=== PATIENT | male | born 1995 | race Caucasian/White ===

== ENCOUNTER 2017-05-24 23:00 | Inpatient (IN) | payer OTHER ==
[~2017-05-24] VITALS: Ht 177.8 cm; Wt 61.2 kg
--- NOTE | ~2017-05-24 | PN ---
Unit #: [id number] #: [id number] Patient: NICKIE WU [id number] [facility] [address] [place] [address] [id number] I MR#: [id number] NAME: NICKIE WU ROOM: 13 Age: 22 Sex: M Admission Date: 05/25/2017 : 1995 Attending Physician: Xiomy Gomes M.D. Admitting Physician: Xiomy Gomes M.D. Primary Care Physician: Queta VERONICA PROGRESS NOTES DATE OF SERVICE 05/27/2017 DISCUSSION Mr. Wu is a 22-year-old white male who was seen today. Chart was reviewed and case was discussed with the staff. He has been anxious, withdrawn, and rather seclusive to himself. Meanwhile, he has been cooperative with the treatment recommendations and has been taking the medications and tolerating them fairly well with no reported side effects. MENTAL STATUS EXAMINATION Young white male who is casually dressed with fair personal hygiene, appears to be in no acute distress or discomfort. The patient was awake and alert on interaction with intact orientation. His mood is anxious with congruent affect. His speech is slow and restricted in content. His thought processes were disorganized with some looseness of associations. His insight and judgment remain significantly impaired. TREATMENT PLAN 1. We will continue him on his current medications and treatment protocol. We will monitor response and make further adjustments as needed. 2. We will continue to follow up. Dictated by... Raul Shultz/cynthiag TD: 05/27/2017 12:50 JOB #: [id number] Unit #: [id number] #: [id number] Patient: NICKIE WU PROGRESS NOTES Page 1 of 1 X Xiomy Gomes MD X PROGRESS NOTE
--- NOTE | ~2017-05-24 | PN ---
Unit #: [id number] #: [id number] Patient: NICKIE WU [id number] [facility] [address] [place] [address] [id number] I MR#: [id number] NAME: NICKIE WU ROOM: 13 Age: 22 Sex: M Admission Date: 05/25/2017 : 1995 Attending Physician: Xiomy Gomes M.D. Admitting Physician: Xiomy Gomes M.D. Primary Care Physician: Queta VERONICA PROGRESS NOTES DATE May 30, 2017 DISCUSSION Mr. Wu is a 22-year-old white male, who was seen today and chart was reviewed and the case was discussed with the staff. He has been anxious, withdrawn, and rather seclusive to himself. Meanwhile, he has been cooperative with the treatment recommendations, and he has been taking the medications and tolerating them fairly well with no reported side effects. MENTAL STATUS EXAMINATION Young white male, who was casually dressed with fair personal hygiene and appears to be in no acute distress or discomfort. He was awake and alert on interaction with intact orientation. His mood is anxious with a congruent affect. He denies any suicidal or homicidal ideations. His insight and judgment remain slightly impaired. TREATMENT PLAN 1. We will continue him on his current medications and treatment protocol, and will monitor his response to the medications, and make further adjustments as needed. 2. We will continue to followup. Dictated by... Raul Shultz/lisa TD: 05/31/2017 11:36 JOB #: [id number] Unit #: [id number] #: [id number] Patient: NICKIE WU PROGRESS NOTES Page 1 of 1 X Xiomy Gomes MD X PROGRESS NOTE
--- NOTE | ~2017-05-24 | HP ---
Unit #: [id number] #: [id number] Patient: NICKIE GARG [id number] [facility] [address] [place] [address] [id number] I MR#: [id number] NAME: NICKIE GARG ROOM: P113 Age: 22 Sex: M Admission Date: 05/25/2017 : 1995 Attending Physician: Xiomy Gomes M.D. Admitting Physician: Xiomy Gomes M.D. Primary Care Physician: Queta Chris HISTORY AND PHYSICAL HISTORY OF PRESENT ILLNESS Nickie is a 22 year old admitted to [address] [place] [address] with depression verbalizing wanting to hurt himself. He has had other admissions to this facility for the same. PAST MEDICAL HISTORY Long history of poly-illicit substance abuse. PAST SURGICAL HISTORY Nothing reported. ALLERGIES No known drug allergies. SOCIAL HISTORY Smokes 1 pack per day. Denies alcohol. Has a history of illicit substance abuse to include opioids and amphetamines. FAMILY HISTORY Medically noncontributory. REVIEW OF SYSTEMS CONSTITUTIONAL: No fever or chills. HEENT: Denies any sore throat, ear pain or runny nose. CARDIOVASCULAR: Denies chest pain, irregular heart rhythm or palpitations. CHEST: Denies shortness of breath or cough. No hemoptysis. GASTROINTESTINAL: Denies nausea, vomiting, diarrhea or chronic constipation. ENDOCRINE: Denies history of increased thirst or urination. No recent significant weight loss or gain. GENITOURINARY: Denies dysuria, frequency, or hematuria. SKIN: Denies any rashes. HEMATOLOGIC: Denies history of increased bleeding or bruising. MUSCULOSKELETAL: Denies any hot, swollen joints. No generalized muscle pain. NEUROLOGIC: Denies problems with vision or speech. No frequent, severe headaches. No numbness, tingling or weakness in any extremities. Denies loss of bladder or bowel control. CURRENT MEDICATIONS 1. Seroquel 200 mg q.h.s. 2. Nicotine patch 14 mg daily. 3. Milk of Magnesia p.r.n. Unit #: [id number] #: [id number] Patient: NICKIE GARG 4. Maalox p.r.n. 5. Tylenol p.r.n. 6. Desyrel p.r.n. 7. Cogentin p.r.n. PHYSICAL EXAMINATION GENERAL: Alert, well-nourished, in no apparent distress. VITAL SIGNS: Blood pressure 110/80, heart rate 80, respirations 16, temperature 98.6. WEIGHT: 135. HEIGHT: 5 feet 10 inches. SKIN: Warm and dry without rash or lesion. HEENT: Normocephalic. TMs not viewed. Oral and nasal passages clear. Conjunctivae clear. PERRLA. EOMs intact. NECK: Supple without lymphadenopathy or thyromegaly. HEART: Regular rate and rhythm without murmur. LUNGS: Clear. ABDOMEN: Soft, nontender. : Not done. EXTREMITIES: No evidence of cyanosis, clubbing or edema. Moves all without focal deficit. NEUROLOGICAL: Grossly within normal limits. Cranial Nerves: II: Visual ge are intact. III, IV AND : Extraocular movements are intact. Pupils are equal, round and reactive to light. V: Facial sensation is grossly normal. VII: Facial movements and expression are normal. VIII: Auditory acuity grossly intact. IX, X: Uvula is midline. Phonation is normal. XI: Patient shrugs shoulders and turns head normally. XII: Tongue protrudes in the midline. Sensory and Motor Function: Sensory and motor sensation is grossly normal. Motor: moves all extremities well. Coordination: Gait is normal. Deep Tendon Reflexes: Intact. IMPRESSION Psychiatric admission. RECOMMENDATIONS PSYCHIATRIC: Per psychiatrist. MEDICAL: See no contraindication to participate in facility's activities. MEDICAL PROGNOSIS Good. MEDICAL CONDITION Stable. Dictated by... Lala Steve P.A.-C. for Raul Cullen/wilbert TD: 05/25/2017 17:50 JOB #: [id number] Unit #: [id number] #: [id number] Patient: NICKIE GARG HISTORY AND PHYSICAL Page 1 of 1 X Lala Steve HISTORY AND PHYSICAL
--- NOTE | ~2017-05-24 | DS ---
Unit #: [id number] #: [id number] Patient: [facility]U [id number] [facility] [address] [place] [address] [id number] I MR#: [id number] NAME: NICKIE WU ROOM: [facility] Age: 22 Sex: M Admission Date: 05/25/2017 : 1995 Discharge Date: 06/01/2017 Attending Physician: Xiomy Gomes M.D. Primary Care Physician: Queta Chris DISCHARGE SUMMARY IDENTIFYING DATA Mr. Wu is a 22-year-old single white male, who is a resident of [place], [place], and is known to us from previous encounters and was brought to the hospital by his family. HISTORY OF PRESENT ILLNESS Please see initial psychiatric evaluation for details. PAST PSYCHIATRIC HISTORY Please see initial psychiatric evaluation for details. PAST MEDICAL HISTORY Please see initial psychiatric evaluation for details. HOSPITAL COURSE The patient was admitted to the Adult Psychiatric Unit at [facility] and was oriented to the hospital environment. Routine p.r.n. medications were initiated and he was started back on his home medications and was closely monitored. He was initially seen to be anxious, withdrawn, and rather seclusive to himself. He was calm and cooperative with the treatment recommendations and he was taking his medications regularly and was tolerating them fairly well and was able to show a decent therapeutic response with improvement in his depression and anxiety, and no agitation or aggression was noted, and he was willing to continue treatment on outpatient basis. He was denying any suicidal ideations, intent, or plan, and as such it was decided that he will be discharged home to continue treatment on an outpatient basis. DISCHARGE DIAGNOSES Psychiatric: Seneca I Schizoaffective disorder, bipolar type, most recent episode depressed, recurrent, without psychotic features. Seneca II Seneca III None. Seneca IV Moderate psychosocial stressors. Seneca V DISCHARGE MEDICATIONS Seroquel 100 mg in the morning and 200 at bedtime CONDITION AT DISCHARGE Stable. Unit #: [id number] #: [id number] Patient: NICKIE WU PROGNOSIS Fair. Dictated by... Raul Shultz/lisa TD: 06/03/2017 11:50 JOB #: [id number] DISCHARGE SUMMARY Page 1 of 1 X Xiomy Gomes MD DISCHARGE SUMMARY
--- NOTE | ~2017-05-24 | PN ---
Unit #: [id number] #: [id number] Patient: NICKIE WU [id number] [facility] [address] [place] [address] [id number] I MR#: [id number] NAME: NICKIE WU ROOM: 13 Age: 22 Sex: M Admission Date: 05/25/2017 : 1995 Attending Physician: Xiomy Gomes M.D. Admitting Physician: Xiomy Gomes M.D. Primary Care Physician: Queta VERONICA PROGRESS NOTES DATE 05/31/2017 DISCUSSION Mr. Wu is a 22-year-old, white male who was seen today and chart was reviewed and case was discussed with the staff. He has been anxious, withdrawn and seclusive to himself. Meanwhile, he has been cooperative with the treatment recommendations. He has been taking the medication and tolerating them fairly well with no reported side effects. MENTAL STATUS EXAM Young white male who was casually dressed with fair personal hygiene, appears to be in no acute distress or discomfort. He was awake and alert on interaction with intact orientation. His mood was anxious with congruent affect. His speech was slow and goal directed. He denies any suicidal or homicidal ideation. His insight and judgement remains slightly impaired. TREATMENT PLAN 1. We will continue him on his current treatment protocol. We will monitor his response to the medication and make further adjustments as needed. 2. We will continue to follow up. Dictated by... Raul Shultz/lucas TD: 06/01/2017 20:26 JOB #: [id number] Unit #: [id number] #: [id number] Patient: NICKIE WU PROGRESS NOTES Page 1 of 1 X Xiomy Gomes MD X PROGRESS NOTE
--- NOTE | ~2017-05-24 | PN ---
Unit #: [id number] #: [id number] Patient: NICKIE WU [id number] [facility] [address] [place] [address] [id number] I MR#: [id number] NAME: NICKIE WU ROOM: 13 Age: 22 Sex: M Admission Date: 05/25/2017 : 1995 Attending Physician: Xiomy Gomes M.D. Admitting Physician: Xiomy Gomes M.D. Primary Care Physician: Queta VERONICA PROGRESS NOTES DATE 05/26/2017 DISCUSSION Mr. Wu is a 22-year-old white male who was seen today and chart was reviewed and case was discussed with the staff. He has been anxious, withdrawn, depressed and rather seclusive to himself with blunted affect, minimal interaction and poor eye contact though he has been taking medications and tolerating them fairly well with no reported side effects. MENTAL STATUS EXAMINATION Young white male who was casually dressed with fair personal hygiene and appears to be in no acute distress or discomfort. He was awake and alert on interaction with intact orientation. His mood was anxious and depressed with congruent affect. His speech is slow and restricted in content. His thought processes were disorganized with some looseness of associations and paranoid ideations. He reports suicidal ideations as well as auditory hallucinations. His insight and judgement remains significantly impaired. TREATMENT PLAN 1. Will continue on his current medications and treatment protocol. Will monitor his response to the medications and make further adjustments as needed. 2. Will continue to follow up. Dictated by... Raul Shultz/wilbert TD: 05/26/2017 15:40 JOB #: [id number] Unit #: [id number] #: [id number] Patient: NICKIE WU PROGRESS NOTES Page 1 of 1 X Xiomy Gomes MD X PROGRESS NOTE
--- NOTE | ~2017-05-24 | PN ---
Unit #: [id number] #: [id number] Patient: NICKIE WU [id number] [facility] [address] [place] [address] [id number] I MR#: [id number] NAME: NICKIE WU ROOM: 13 Age: 22 Sex: M Admission Date: 05/25/2017 : 1995 Attending Physician: Xiomy Gomes M.D. Admitting Physician: Xiomy Gomes M.D. Primary Care Physician: Queta VERONICA PROGRESS NOTES DATE OF SERVICE: 05/29/2017 SUBJECTIVE Mr. Wu is a 22-year-old white male, who was seen today and chart was reviewed and case was discussed with the staff. He has been anxious, withdrawn, seclusive to himself with blunted affect and minimal interaction. Meanwhile, he has been taking medications and tolerating them fairly well with no reported side effects. MENTAL STATUS EXAMINATION Young white male, who was casually dressed with a fair personal hygiene and appears to be in no acute distress or discomfort. He was awake and alert with intact orientation. His mood was anxious with a congruent affect. His speech is slow and goal directed. He denies any suicidal or homicidal ideations. His insight and judgment remain slightly impaired. TREATMENT AND PLAN 1. We will continue him on his current treatment protocol. We will monitor his response to medication and make further adjustments as needed. 2. We will continue to follow up. Dictated by... Raul Shultz/homero TD: 06/01/2017 00:32 JOB #: [id number] [facility] PROGRESS NOTES Page 1 of 1 X Xiomy Gomes MD X PROGRESS NOTE
--- NOTE | ~2017-05-24 | PA ---
Unit #: [id number] #: [id number] Patient: NICKIE WU [id number] [facility] [address] [place] [address] [id number] I MR#: [id number] NAME: NICKIE WU ROOM: P113 Age: 22 Sex: M Admission Date: 05/25/2017 : 1995 Date of Assessment: Attending Physician: Xiomy Gomes M.D. Admitting Physician: Xiomy Gomes M.D. Primary Care Physician: Queta Chris PSYCHIATRIC ASSESSMENT DATE OF SERVICE 05/25/2017. IDENTIFYING DATA Mr. Wu is a 22-year-old single white male, who is a resident of [place], [place], and is known to us from previous encounter, was self-referred to the hospital on a voluntary basis. CHIEF COMPLAINT "I'm suicidal." HISTORY OF PRESENT ILLNESS Mr. uW is a 22-year-old white male with long history of mood disorder, who came to the hospital stating that he is suicidal and that he has tried to overdose the other day and "I didn't succeed." He then began to chuckle and stated that he is hearing voices in his head and the voices are telling to kill himself and that he has had no sleep for the last few nights and reports no substance abuse, however, reports that he has been taking medications as prescribed, but that they are not effective. He reports being unemployed and unable to seek an employment due to his mental health problems and has been living with his parents and has not been able to maintain independent housing and reports no income and does report increasing depression, anxiety, feelings of hopelessness and helplessness, and suicidal ideations and history of suicide attempts and as such, recommendation for inpatient level of care for safety and stabilization was made and the patient was stepped up to the inpatient unit. SUBSTANCE ABUSE HISTORY The patient denies any alcohol or drug abuse. PAST PSYCHIATRIC HISTORY The patient has had history of multiple inpatient psychiatric hospitalizations at [facility] and has been diagnosed and treated for schizoaffective bipolar type and is currently on a combination of trazodone, Seroquel, and Cogentin, and reports that he has been taking his medications on regular basis. PAST MEDICAL HISTORY No acute or chronic medical illnesses. ALLERGIES No known medication allergies. Unit #: [id number] #: [id number] Patient: NICKIE WU CURRENT MEDICATIONS Seroquel, trazodone, and Cogentin. PERSONAL AND SOCIAL HISTORY A 22-year-old white male, who reports that he is single, unemployed, and lives at home with his parents and has fairly decent social support system. MENTAL STATUS EXAMINATION Young white male who was casually dressed with fair personal hygiene, appears to be in no acute distress or discomfort. He was awake and alert on interaction with intact orientation to time, place, and person. His mood was anxious and depressed with a congruent affect. His speech was slow and tangential. His thought processes were disorganized with some looseness of associations and flight of ideas and suicidal ideations. His insight and judgment remain significantly impaired. DIAGNOSTIC IMPRESSION Psychiatric: Schizoaffective disorder, bipolar type, most recent episode manic with psychosis. Medical: None. Stressors: Moderate psychosocial stressors. TREATMENT PLAN 1. The patient has presented with history of mood disorder and psychosis and has been decompensating and will need inpatient hospitalization for safety and stabilization. We will start him back on his home medications. We will adjust the medications and monitor response. 2. Supportive therapy was provided to the patient. 3. Safe, structured, and nourishing environment will be provided. ESTIMATED LENGTH OF STAY 5 to 7 days. ABILITY TO HELP SELF Limited. WILLINGNESS TO HELP SELF The patient appears to be willing to help self. STRENGTHS 1. Communicative. 2. Cooperative. PROBLEMS 1. Chronic dysphoric symptoms. 2. Chronic chemical dependency. 3. Poor social support system. DISCHARGE CRITERIA This will be contingent upon the patient's ability to show resolution of his tamela and psychosis and his ability to stay safe to himself, particularly after discharge from the hospital. Dictated by... Xiomy Gomes M.D. Unit #: [id number] #: [id number] Patient: NICKIE WU IAA/modl TD: 05/25/2017 06:48 JOB #: [id number] PSYCHIATRIC ASSESSMENT Page 1 of 1 X Xiomy Gomes MD X PSYCHIATRIC ASSESSMENT
--- NOTE | ~2017-05-24 | PN ---
Unit #: [id number] #: [id number] Patient: NICKIE WU [id number] [facility] [address] [place] [address] [id number] I MR#: [id number] NAME: NICKIE WU ROOM: 13 Age: 22 Sex: M Admission Date: 05/25/2017 : 1995 Attending Physician: Xiomy Gomes M.D. Admitting Physician: Xiomy Gomes M.D. Primary Care Physician: Queta VERONICA PROGRESS NOTES DATE 05/28/2017 DISCUSSION Mr. Wu is a 22-year-old, white male who was seen today and chart was reviewed and case was discussed with the staff. He has been anxious, withdrawn and rather seclusive to himself. Meanwhile, he has been cooperative with treatment recommends. He has been taking the medication and tolerating them fairly well with no reported side effects. MENTAL STATUS EXAM Young white male who was casually dressed with fair personal hygiene, appears to be in no acute distress or discomfort. He was awake and alert on interaction with intact orientation. His mood was anxious with congruent affect. His speech was slow and restricted in content. He denies any suicidal or homicidal ideation. His insight and judgement remains slightly impaired. TREATMENT PLAN 1. We will continue him on his current medications and treatment protocol. We will monitor his response to the medication and make further adjustments as needed. 2. We will continue to follow up. Dictated by... Raul Shultz/lucas TD: 05/28/2017 20:12 JOB #: [id number] Unit #: [id number] #: [id number] Patient: NICKIE WU PROGRESS NOTES Page 1 of 1 X Xiomy Gomes MD X PROGRESS NOTE
[~2017-05-24 23:00] MED LIST: NO MEDICATIONS
[2017-05-25 12:41] LABS: BASOPHIL% 0.3 % (0-2.5); EOSINOPHIL# 0.1 X10e3 (0-0.7); EOSINOPHIL% 2.4 % (0.0-7.0); HEMATOCRIT 46.1 % (38.0-50.0); HEMOGLOBIN 15.5 gm/dL (13.0-16.0); LYMPHOCYTE# 1.7 X10e3 (1.0-3.5); LYMPHOCYTE% 34.9 % (17.0-45.0); MEAN CELL VOLUME 90.1 FL (83-96); MEAN CORPUSCULAR HEMOGLOBIN 30.2 PG (28-34); MEAN CORPUSCULAR HGB CONC 33.6 g/dL (30-36); MEAN PLATELET VOLUME 8.4 FL (6.5-11.5); MONOCYTE# 0.8 X10e3 (0-1.0); MONOCYTE% 16.2 % (3.0-12.0); NEUTROPHIL# 2.2 X10e3 (1.5-7.1); NEUTROPHIL% 46.2 % (40-75); PLATELET COUNT 219 X10e3 (140-420); RED BLOOD COUNT 5.12 X10e (3.90-5.60); RED CELL DISTRIBUTION WIDTH 13.7 % (11.0-15.5); WHITE BLOOD COUNT 4.8 X10e3 (4.0-10.5)
[2017-05-25 12:45] LABS: CALCIUM SERUM 9.4 mg/dL (8.4-10.2); CREATININE SERUM 0.9 mg/dL (0.6-1.4); POTASSIUM 4.2 mmol/L (3.5-5.1); PROTEIN TOTAL SERUM 6.3 g/dL (6.0-8.3)
[2017-05-25 12:47] LABS: DIFF IND NO
[2017-06-01 09:55] LABS: URINE APPEARANCE CLEAR; URINE BILIRUBIN NEG (NEG); URINE BLOOD NEG (NEG); URINE COLOR YELLOW; URINE GLUCOSE NEG (NEG); URINE KETONE NEG (NEG); URINE LEUKOCYTE ESTERASE NEG (NEG); URINE NITRATE NEG (NEG); URINE PH 6.5 (5-8); URINE PROTEIN NEG (NEG); URINE SPECIFIC GRAVITY 1.016 (1.003-1.035); URINE UROBILINOGEN 0.2 MG/DL (NEG)
[2017-06-01 10:40] LABS: AMPHETAMINE NEG (NEG); BARBITURATES NEG (NEG); BENZODIAZEPINES NEG (NEG); COCAINE NEG (NEG); MARIJUANA NEG (NEG); OPIATES NEG (NEG); TRICYCLIC ANTIDEPRESSANTS POS (NEG); U METHADONE NEG (NEG)
== END 2017-06-01 10:45 | disposition home or self-care (01) | DRG 885 ==
LOC: P1S 05-25 03:04
PROVIDERS: Psychiatry & Neurology Psychiatry
DX: F31.30 Bipolar disorder, current episode depressed, mild or moderate severity, unspecified (principal); R45.851 Suicidal ideations
CPT/HCPCS: 80053; 80307; 81003; 85025